=== PATIENT | male | born 1965 | race Caucasian/White ===

== ENCOUNTER 2017-09-02 13:02 | Outpatient (CLI) | payer OTHER ==
--- NOTE | 2017-09-02 14:01 | Diagnostic Imaging Report ---
ALBIN THOMAS (HAIR CUTTER) - OP [facility] [address] [facility].[address] [id number] Report Submission Date: Sep 02, 2017 1:49:14 PM MATCH MAKER Patient Study Name: AIDE DOUGLAS Date: Sep 02, 2017 1:17:36 PM MATCH MAKER Modality Type: CR Gender: M Description: CHEST : 63 Institution: [facility] Physician: ALBIN THOMAS (DARYL) - OP Examination: PA and lateral chest. History: Evaluate lung [place]. Comparison exam: None provided Findings: PA lateral chest demonstrate a normal cardiac and mediastinal silhouette. No focal infiltrate. No blunting of the costophrenic margins. Osseous structures are appropriate for age. Impression: No acute pulmonary process. Electronically signed on Sep 02, 2017 1:49:14 PM MATCH MAKER by: Amrit GRESHAM
--- NOTE | 2017-09-02 14:02 | Diagnostic Imaging Report ---
ALBIN THOMAS (FUR PULLER) - OP [facility] [address] [facility].[address] [address] Report Submission Date: Sep 02, 2017 1:47:12 PM MANAGER ACCOUNT MANAGEMENT Patient Study Name: AIDE DOUGLAS Date: Sep 02, 2017 1:24:27 PM MANAGER ACCOUNT MANAGEMENT Modality Type: CR Gender: M Description: UPPER EXTREMITY : 63 Institution: [facility] Physician: ALBIN THOMAS (DARYL) - OP Examination: Plain film forearm History: Trauma Comparison exams: None available Findings: 2 views of the radius and ulna demonstrates normal cortical margins. No evidence for fracture line. No soft tissue abnormality. Impression: No acute osseous abnormality. Electronically signed on Sep 02, 2017 1:47:12 PM MANAGER ACCOUNT MANAGEMENT by: Amrit GRESHAM
--- NOTE | 2017-09-02 14:02 | Diagnostic Imaging Report ---
ALBIN THOMAS (SORTING SUPERVISOR) - OP [facility] [address] [facility] [address] [address] Report Submission Date: Sep 02, 2017 1:46:02 PM HAND BINDER STRIPPER Patient Study Name: AIDE DOUGLAS Date: Sep 02, 2017 1:20:30 PM HAND BINDER STRIPPER Modality Type: CR Gender: M Description: CHEST : 63 Institution: [facility] Physician: ALBIN THOMAS (DARYL) - OP Examination: Plain film ribs History: Injury Findings: 3 views of the ribs demonstrates normal cortical margins. No fracture or dislocation. Underlying parenchymal without abnormality. Impression: No rib fracture/abnormality. Electronically signed on Sep 02, 2017 1:46:02 PM HAND BINDER STRIPPER by: Amrit GRESHAM
--- NOTE | 2017-09-02 14:02 | Diagnostic Imaging Report ---
ALBIN THOMAS (DARYL) - OP [facility] [address] [facility].[address] [address] Report Submission Date: Sep 02, 2017 1:48:33 PM EMERGENCY DISPATCHER Patient Study Name: AIDE DOUGLAS Date: Sep 02, 2017 1:27:11 PM EMERGENCY DISPATCHER Modality Type: CR Gender: M Description: SPINE : 63 Institution: [facility] Physician: ALBIN THOMAS (DARYL) - OP Examination: Plain film thoracic spine History: Trauma Findings: 4 views of the thoracic spine demonstrate normal height. No anterior compression. Osteophyte formation. No soft tissue abnormalities. Impression: Degenerative spurring. No vertebral body compression deformity. Electronically signed on Sep 02, 2017 1:48:33 PM EMERGENCY DISPATCHER by: Amrit GRESHAM
== END 2017-09-02 13:15 ==
LOC: RAD 13:02
PROVIDERS: ATTEND Nurse Practitioner Family
DX: M79.601 Pain in right arm (principal); W19.XXXA Unspecified fall, initial encounter; R10.31 Right lower quadrant pain; R10.11 Right upper quadrant pain; M54.6 Pain in thoracic spine
CPT/HCPCS: 71020; 71100; 72072; 73090